=== PATIENT | male | born 1960 | race Caucasian/White ===

== ENCOUNTER 2019-09-14 06:23 | Outpatient (CLI) | payer OTHER ==
[~2019-09-14] VITALS: Ht 170.2 cm; Wt 59.1 kg
--- NOTE | ~2019-09-14 | HEMODYNAMI ---
PATIENT:DAVID WOLFE MEDICAL RECORD: [id number] : 64 LOCATION:[facility] ADMISSION DATE: 09/14/19 Generatedon:09/14/201912:49 Patient name: DAVID WOLFE Patient #: [id number] SSN: [id number] : 1960 Date of study: 09/14/2019 Page: Of Hemodynamic Procedure Report Patient Data Patient Demographics Procedure consent was obtained First Name: DAVID Gender: Male Last Name: AIDEN : 1960 Middle Initial: E Age: 58 year(s) Patient #: [id number] Race: SSN: [id number] Additional ID: [id number] Contact details [address]: [address] [place] [address] State: [place] City: [place] Zip code: [address] Past Medical History Allergies Allergen Reaction Date Comments Reported Other allergy 09/14/2019 codeine Admission Admission Data Admission Date: 09/14/2019 Admission Time: 6:23 Arrival Date: 09/14/2019 Arrival Time: 0:00 Admit Source: Emergency Insurance Payor: Private department health insurance [facility] #: [id number] Height (in.): 66.93 BSA: 1.68 (m2) Height (cm.): 170 BMI: 20.42 (kg/m2) Weight (lbs.): 130.07 Weight (kg.): 59 Lab Results Lab Result Date: 09/14/2019 Lab Result Time: 0:00 Biochemistry Name Units Result Min Max BUN mg/dl 9 --(*---)-- 7 18 Creatinine mg/dl 0.9 --(-*--)-- 0.6 1.3 eGFR ml/min 90 --(*---)-- 90 120 NONAFRICAN Troponin l ng/ml 0.017 --(-*--)-- 0 0.06 CBC Name Units Result Min Max Hematocrit % 43.4 --(*---)-- 42 54 Hemoglobin g/dl 15.1 --(-*--)-- 13.5 17.5 Procedure Procedure Types Cath Procedure Diagnostic Procedure [facility] w/Coronaries Sedation Charges Moderate Sedation up to 15 minutes PCI Procedure Coronary Stent Coronary Stent Initial x2 Hemochron ACT Test Procedure Description Procedure Date Procedure Date: 09/14/2019 Procedure Start Time: 12:24 Procedure End Time: 12:47 Procedure Staff Name Function Elan Centeno MD Performing Physician Lesa Mcclelland RT Monitor Toni Byrd RN Nurse Nancy Jackson RT Scrub Bal Cooper RT Monitor Indication Chest pain Procedure Data Cath Procedure Fluoroscopy Diagnostic fluoroscopy Total fluoroscopy Time: 4.9 time: 4.9 min min Diagnostic fluoroscopy Total fluoroscopy dose: 497 dose: 497 mGy mGy Contrast Material Contrast Material Type Amount (ml) Isovue 300 104 Entry Location Entry Primary Successful Side Size Upsize Upsize Entry Closure Abraham ccessful Closure Location (Fr) 1 (Fr) 2 (Fr) Remarks Device Remarks Radial Right 6 Fr Mechanical artery Short Compression Estimated blood loss: 10 ml Diagnostic catheters Device Type Used For End Catheter Placement DIAGNOSTIC [place] 110cm 5 Procedure Fr catheter ([id number]) Procedure Complications No complications Procedure Medications Medication Administration Route Dosage 0.9% NaCl I.V. 100 ml/hr Oxygen etCO2 Nasal cannula 2 l/min Heparin Flush Bag added to field 2 bags (1000units/500ml NS) Lidocaine 2% added to field 20 Radial Cocktail added to field 1 syringe (Verapamil 2mg/Nitro 400mcg/Heparin 1500units) Versed I.V. 1 mg Fentanyl I.V. 50 mcg Radial Cocktail I.A. 1 syringe (Verapamil 2mg/Nitro 400mcg/Heparin 1500units) Versed I.V. 1 mg Fentanyl I.V. 50 mcg Heparin Bolus I.V. 4000 units Integrilin (Bolus I.V. 5 ml 2mg/ml) Integrilin (Bolus wasted 5 ml 2mg/ml) Hemodynamics Rest BSA: 1.68 (m2) HGB: 15.1 (g/dl) O2 Consumption: Estimated: 205.83 (ml/min) O2 Co nsumption indexed: Estimated:122.52 (ml/min/m) Heart Rate: 81 (bpm) Snapshots Pre Cath Intra NCS Post Cath Vital Signs Time Heart Resp SPO2 etCO2 NIBP (mmHg) Rhythm Pain Sedation Rate (ipm) (%) (mmHg) Status Level (bpm) 12:15:21 86 14 99 0 137/83(111) NSR 0 (11) 10(A) , No pain 12:19:30 82 12 99 12.6 121/85(99) NSR 0 (11) 10(A) , No pain 12:23:34 82 14 97 29.6 131/85(102) NSR 0 (11) 10(A) , No pain 12:27:46 88 18 96 22.2 118/61(83) NSR 0 (11) 10(A) , No pain 12:31:52 91 19 95 19.2 121/67(99) NSR 0 (11) 10(A) , No pain 12:36:00 92 17 96 23 115/70(90) NSR 0 (11) 9(A) , No pain 12:40:05 87 19 96 7.4 123/69(98) NSR 0 (11) 9(A) , No pain 12:44:13 84 8 96 27.4 117/74(95) NSR 0 (11) 9(A) , No pain Medications Time Medication Route Dose Verified Delivered Reason Not es Effectiveness by by 12:19:09 0.9% NaCl I.V. 100 Toni Toni Per physician ml/hr Rochelle Byrd RN RN 12:20:14 Oxygen etCO2 2 l/min Toni Toni for low 02 sats Nasal Lorigan Lordannielle cannula RN RN 12:20:25 Heparin Flush added 2 bags Toni Toni used for Bag to Lorigan Lorigan procedure (1000units/500ml [facility] RN RN NS) 12:20:38 Lidocaine 2% added 20ml Toni Toni for local to vial Lorigan Lorigan anesthetic field RN RN 12:20:49 Radial Cocktail added 1 Toni Toni used for (Verapamil to syringe Lorigan Lorigan procedure 2mg/Nitro field RN RN 400mcg/Heparin 1500units) 12:21:48 Versed I.V. 1 mg Toni Toni for sedation Rochelle Byrd RN RN 12:21:56 Fentanyl I.V. 50 mcg Toni Toni for sedation Rochelle Byrd RN RN 12:25:33 Radial Cocktail I.A. 1 Toni Elan for (Verapamil syringe Rochelle Centeno MD vasodilation 2mg/Nitro RN 400mcg/Heparin 1500units) 12:25:42 Versed I.V. 1 mg Toni Toni for sedation Rochelle Byrd RN RN 12:25:49 Fentanyl I.V. 50 mcg Toni Toni for sedation Rochelle Byrd RN RN 12:30:31 Heparin Bolus I.V. 4000 Toni Toni for units Rochelle Byrd anticoagulation RN RN 12:31:20 Integrilin I.V. 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 11:50:36 Bal LUTZ(R) sent for patient. Start room use. 11:50:38 Time tracking: Regular hours (M-F 7:00 - 5:00) 11:50:47 Plan of Care:Hemodynamics will remain stable., Cardiac rhythm will remain stable., Comfort level will be maintained., Respiratory function will remain adequate., Patient/ family verbilizes understanding of procedure., Procedure tolerated without complication., Recovers from procedure without complications.. 11:55:06 Risk of Mortality: 0.7 11:55:11 Risk of blood transfusion: 3.7 11:55:16 Risk of FARZANEH: 7.2 11:55:54 ACC Patient presents with Stable Angina CCS Anginal Class 2--Slight limitation of ordinary activity. 11:55:59 ACCPatient has been prescribed/administered the following anti-anginal medication within the last 2 weeks: None 11:57:01 Lab Result : eGFR NONAFRICAN 90 ml/min 11:57:01 Lab Result : Hemoglobin 15.1 g/dl 11:57:01 Lab Result : Hematocrit 43.4 % 11:57:01 Lab Result : BUN 9 mg/dl 11:57:01 Lab Result : Creatinine 0.9 mg/dl 11:57:01 Lab Result : Troponin l 0.017 ng/ml 11:58:26 Patient allergic to Other allergycodeine 11:58:31 Arrival Date: 09/14/2019 12:00:00 AM 11:58:39 Admit Source: Emergency department 11:59:18 Insurance Payor : Private health insurance 11:59:23 Patient Height : 66.93 inches 11:59:29 Patient Weight : 130.07 lbs 12:07:36 Patient received from ED to CCL 1 Alert and oriented. Tansferred to table in Supine position. 12:07:41 Warm blankets applied, and cristobal hugger turned on for patient comfort. 12:07:42 Correct patient and procedure confirmed by team. 12:07:43 ECG and BP/O2 sat monitors applied to patient. 12:14:16 Vital chart was started 12:14:21 Baseline sample Acquired. 12:14:31 Rhythm: sinus rhythm 12:14:32 Full Disclosure recording started 12:14:33 - 12:14:44 H&P Date Dictated: 09/14/2019 ER History on chart., New H&P dictated by physician.. 12:15:05 Pre-procedure instructions explained to patient. 12:15:06 Pre-op teaching completed and patient verbalized understanding. 12:15:18 Family in waiting room. 12:15:21 Patient NPO since Midnight. 12:15:28 Is the patient allergic to Iodine/contrast media? No. 12:15:29 Was the patient premedicated? Yes 12:15:31 Is patient on blood thinner?Yes 12:15:36 ACC The patient was administered the following blood thiners within the last 24 hours: ACCAspirin, ACCPlavix 12:15:42 Patient diabetic? No. 12:15:44 ----Pre-sedation anethsthesia assessment.---- 12:15:48 Previous problem with sedation/anesthesia? No ? 12:15:51 Snore? Yes 12:15:54 Sleep apnea? No 12:15:57 Deviated septum? No 12:15:58 Opens mouth fully? Yes 12:16:00 Sticks out tongue? Yes 12:16:13 Airway obstruction? Yes emphysema 12:16:29 Dentures? Yes partial in tight upper 12:16:52 Pre procedure: right dorsailis pedis pulse 1+ Palpable, but thready & weak; easily obliterated 12:17:00 Modified Tyrone's test Ulnar < 7 seconds 12:17:06 Patient pain scale 0/10 ?. 12:17:23 IV patent on arrival in right forearm with 0.9% NaCl at [facility]. 12:17:33 Lab results completed and on chart. 12:17:41 Stress Test: no; N/A ? 12:17:47 Right Radial & Right Groin area was prepped with chlora-prep and draped in sterile fashion 12:17:49 Alarms reviewed by R. N. 12:17:50 Sharps counted by scrub and verified by R.N. 12:17:51 Physician arrived 12:17:52 --------ALL STOP TIME OUT------ 12:17:53 Final Timeout: patient, procedure, and site verified with staff and physician. All members of the team are in agreement. 12:17:55 Right Radial & Right Groin site verified by team. 12:18:02 Fire Safety Assessment: A--An alcohol-based skin anteseptic being used preoperatively., C--Open oxygen or nitrous oxide is being used., D--An ESU, laser, or fiber-optic light is being used. 12:18:10 Physical assessment completed. ASA score P 2 - A patient with mild systemic disease as per Elan Centeno MD. 12:18:15 1) 90+ Normal kidney functon but urine findings or structural abnormalities or genetic trait point to kidney disease. 12:18:21 Maximum allowable contrast dose (3.7 X eGFR X 0.75)250 ml. 12:18:29 Sedation plan: IV Moderate Sedation Medication:Versed, Fentanyl 12:19:09 0.9% NaCl 100 ml/hr I.V. was administered by Toni Byrd RN; Per physician; Verbal order read back and verified. 12:19:50 Use device set Radial Dx or PCI 12:19:52 ACIST Syringe (08018) opened to sterile field. 12:19:53 Medline Cath Pack ([id number]) opened to sterile field. 12:19:54 Bag Decanter (2001S) opened to sterile field. 12:19:54 ACIST Hand Control (01601) opened to sterile field. 12:19:55 ACIST Manifold (04846) opened to sterile field. 12:19:57 Tegaderm 4 x 4 (1626W) opened to sterile field. 12:19:59 MBrace Wrist Support ([id number]) opened to sterile field. 12:20:03 EMERALD Guide Wire (453-621) opened to sterile field. 12:20:04 SHEATH 6FR RAIN (9712903) opened to sterile field. 12:20:14 Oxygen 2 l/min etCO2 Nasal cannula was administered by Toni Byrd RN; for low 02 sats; Verbal order read back and verified. 12:20:25 Heparin Flush Bag (1000units/500ml NS) 2 bags added to field was administered by Toni Byrd RN; used for procedure; Verbal order read back and verified. 12:20:38 Lidocaine 2% 20ml vial added to field was administered by Toni Byrd RN; for local anesthetic; Verbal order read back and verified. 12:20:49 Radial Cocktail (Verapamil 2mg/Nitro 400mcg/Heparin 1500units) 1 syring e added to field was administered by Toni Byrd RN; used for procedure; Verbal order read back and verified. 12:21:48 Versed 1 mg I.V. was administered by Toni Byrd RN; for sedation; Verbal order read back and verified. 12:21:56 Fentanyl 50 mcg I.V. was administered by Toni Bryd RN; for sedation; Verbal order read back and verified. 12:23:47 Procedure started. 12:24:37 Zero performed for pressure channel P1 12:24:51 Local anesthetic to right radial artery with Lidocaine 2% by Elan Centeno MD.INITIAL ACCESS ONLY 12:25:33 Radial Cocktail (Verapamil 2mg/Nitro 400mcg/Heparin 1500units) 1 syring e I.A. was administered by Elan Centeno MD; for vasodilation; Verbal order read back and verified. 12:25:42 Versed 1 mg I.V. was administered by Toni Byrd RN; for sedation; Verbal order read back and verified. 12:25:46 A 6 Fr Short sheath was inserted into the Right Radial artery 12::49 Fentanyl 50 mcg I.V. was administered by Toni Byrd RN; for sedation; Verbal order read back and verified. 12::59 A DIAGNOSTIC [place] 110cm 5 Fr catheter (611187) was advanced over the wire and used for Procedure. 12::23 LV gram done using PEARCE 12::35 Injector settings: Ml/sec: 5, Volume: 15, 12::50 EF : 60 % 12:: LCA angiography performed. 12:: Injector settings: Ml/sec: 3, Volume: 6, 12::49 RCA angiography performed. 12::00 Injector settings: Ml/sec: 3, Volume: 6, 12::28 GUIDE 6FR XBLAD 3.5 catheter ([id number]) opened to sterile field. 12:28:31 INFLATOR Merit BasixCompak (ER4445) opened to sterile field. 12::42 CHOICE PT Extra Support 182cm wire ([id number]) opened to sterile field. 12::49 Catheter removed. 12:29:10 GUIDE 6FR AR 2.0 SH catheter ([id number]) opened to sterile field. 12:29:29 6 Fr ar2sh guide catheter was inserted over the wire 12:30:04 PT CHOICE wire advanced. 12:30:31 Heparin Bolus 4000 units I.V. was administered by Toni Byrd RN; for anticoagulation; Verbal order read back and verified. 12:30:32 Pre PCI Site: [place] pRCA has 90% stenosis. 12:30:37 ACC Pre-intervention ANNIE Flow is 3. 12:30:48 Wire advanced across lesion. 12:31:20 Integrilin (Bolus 2mg/ml) 5 ml I.V. was administered by Toni Byrd RN; for antiplatelet therapy; Verbal order read back and verified. 12:31:26 Integrilin (Bolus 2mg/ml) 5 ml wasted was administered by Toni Byrd RN; to sharp's; Verbal order read back and verified. 12:32:01 Place stent Inflation Number: 1 A JUSTICE RX 3.0 x 38 stent ([id number]) was prepped and advanced across the Prox RCA . The stent was deployed at 17 CAMILO for 0:00 (min:sec) . 12:32:38 Inflation number: 2 The stent balloon was then re-inflated across the Prox RCA to 17 CAMILO for 0:00 (min:sec) . 12:32:59 Inflation number: 3 The stent balloon was then re-inflated across the Prox RCA to 15 CAMILO for 0:00 (min:sec) . 12:33:45 Inflation number: 4 The stent balloon was then re-inflated across the Prox RCA to 15 CAMILO for 0:00 (min:sec) . 12:34:12 Stent catheter was removed intact over wire. 12:34:14 Wire removed. 12:34:18 Guide catheter removed. 12:34:37 Post PCI Site: [place] pRCA has 0% stenosis. 12:34:50 ACC Post-intervention ANNIE Flow is 3. 12:35:18 CHOICE PT Extra Support 182cm wire ([id number]) opened to sterile field. 12:35:37 6 Fr XBLAD3.5 guide catheter was inserted over the wire 12:35:44 CHOICE PT wire advanced. 12:36:19 Pre PCI Site: [place] mLAD has 90% stenosis. 12:36:26 ACC Pre-intervention ANNIE Flow is 3. 12:36:49 Wire advanced across lesion. 12:37:50 Place stent Inflation Number: 1 A JUSTICE RX 2.5 x 22 stent ([id number]) was prepped and advanced across the Mid LAD . The stent was deployed at 13 CAMILO for 0:00 (min:sec) . 12:38:27 Post PCI Site: [place] mLAD has 0% stenosis. 12:38:39 ACC Post-intervention ANNIE Flow is 3. 12:38:49 Stent catheter was removed intact over wire. 12:38:52 Wire removed. 12:38:53 Guide catheter removed. 12:39:03 ACT drawn and resulted at OUT OF RANGE seconds. (normal therapeutic range 180-240 seconds). 12:39:08 Procedure ended.(Physican Out) 12:39:35 ZEPHYR REGULAR TR BAND (896215) opened to sterile field. 12:39:47 Sheath removed intact; hemostasis achieved with Mechanical Compression to the Right Radial artery. 12:42:03 Contrast amount:Isovue 300 104ml. 12:42:13 Fluoroscopy time 04.90 minutes. 12:42:21 Fluoroscopy dose: 497 mGy 12:42:21 Flurop Dose total: 497 12:42:30 Dose Area Product 64210 mGy/cm. 12:42:35 Maximum allowable dose exceeded? No. 12:42:37 Sharps counted by scrub and verified by R.N. 12:43:11 [place] band inflated with 10cc of air. 12:43:13 Insertion/operative site no bleeding no hematoma. 12:43:33 Post right radial artery:stable 12:43:36 Post Procedure Pulses reassessed and unchanged 12:43:41 Post-procedure physical assessment completed. ASA score P 2 - A patient with mild systemic disease as per Elan Centeno MD. 12:43:49 Post procedure rhythm: unchanged. 12:43:54 Estimated blood loss: 10 ml 12:44:03 Post procedure instruction explained to patient.Patient verbalizes understanding. 12:44:07 Patient needs reinforcement of post procedure teaching. 12:45:21 Procedure type changed to Cath procedure, Diagnostic procedure, LHC, C w/Coronaries, Sedation Charges, Moderate Sedation up to 15 minutes, PCI procedure, Coronary Stent, Coronary Stent Initial x2, Hemochron ACT Test 12:45:25 Procedure and supply charges have been captured, reviewed, submitted an d are correct. 12:46:41 Procedure Complication : No complications 12:46:45 Vital chart was stopped 12:46:48 [facility] Findings: MVD- PCI performed (see procedure note) 12:46:52 Operative report dictated upon procedure completion. 12:46:53 See physician's report for complete and final results. 12:46:57 Report given to Pre/Post Procedure Room. 12:47:02 Patient transfered to Pre/Post Procedure Room with Stretcher. 12:47:07 Procedure ended. 12:47:07 Full Disclosure recording stopped 12:47:31 ACC-PCI Only Patient was given prescriptions, or instructed by Elan Centeno MD to start/continue the following medications upon discharge: Plavix 12:47:33 End room use (Document Last) Intervention Summary Intervention Notes Time ActionType Lesion and Equipment Used Action# Pressure Duration Attributes 12:32:01 Place stent Prox RCA JUSTICE RX 3.0 x 1 17 00:00 38 stent ([id number]) 12:32:38 Reinflate Prox RCA JUSTICE RX 3.0 x 2 17 00:00 stent 38 stent balloon ([id number]) 12:32:59 Reinflate Prox RCA JUSTICE RX 3.0 x 3 15 00:00 stent 38 stent balloon ([id number]) 12:33:45 Reinflate Prox RCA JUSTICE RX 3.0 x 4 15 00:00 stent 38 stent balloon ([id number]) 12:37:50 Place stent Mid LAD JUSTICE RX 2.5 x 1 13 00:00 22 stent ([id number]) Device Usage Item Name Manufacture Quantity Catalog Number Hospital Part Current M inimal Lot# / Charge Number Stock Stock Serial# Code ACIST Syringe Acist 1 79844 386200 257005 874327 2 0 (92944) Medical Systems Inc Medline Cath Medline 1 [id number] 828641 13369 656555 5 Pack ([id number]) Bag Decanter Microtek 1 2001S 363833 37281 177724 5 (2001S) Medical Inc. ACIST Hand Acist 1 49895 820601 554675 924089 5 Control Medical (62532) Systems Inc ACIST Manifold Acist 1 63251 792934 475663 967715 5 (67662) Medical Systems Inc Tegaderm 4 x 4 3M 1 1626W 066614 751917 669653 5 (1626W) MBrace Wrist Advanced 1 140-0250-00 366092 58411 940016 5 Support Vascular ([id number]) Dynamics EMERALD Guide Cardinal 1 502-455 341655 327957 911348 5 Wire (502-455) Health SHEATH 6FR Cardinal 1 8693665 352145 2047183 538803 5 RAIN (0588521) Health DIAGNOSTIC Terumo 1 31-2353 677583 809788 678739 5 [place] 110cm 5 Fr catheter (574129) GUIDE 6FR Cardinal 1 12706748 101916 430062 085169 1 0 XBLAD 3.5 Health catheter (03910519) INFLATOR Merit Merit 1 IT1730 695608 938732 167821 1 5 Mayi Zhaopin (FF8112) CHOICE PT [place] 2 [id number] 681687 649270 092127 5 Extra Support Scientific 182cm wire ([id number]) GUIDE 6FR AR Medtronic 1 [id number] 451952 37668 670927 1 2.0 SH catheter ([id number]) JUSTICE RX 3.0 x Medtronic 1 [id number] 405137 7114269 588246 5 [id number] 38 stent ([id number]) JUSTICE RX 2.5 x Medtronic 1 [id number] 707269 9075992 755763 5 [id number] 22 stent ([id number]) ZEPHYR REGULAR Cardinal 1 281634 732257 7660759 145115 5 [facility] 3D Systems (666458) Signature Audit [place] Stage Time Signature Unsigned Intra-Procedure 09/14/2019 Lesa 12:49:05 PM Krystin RT(R) (CV) Intra-Procedure 09/14/2019 Toni 12:49:30 PM Rochelle PARKER Intra-Procedure 09/14/2019 Elan Centeno 12:49:53 PM [facility] [address] [place] [address]
[2019-09-14 06:28] VITALS: BP 134/84
[2019-09-14 07:43] LABS: CALC OSMOLALITY 273 mosm/kg (275-300); CALCIUM 8.9 mg/dL (8.5-10.1); CARBON DIOXIDE 25.4 mmol/L (21.0-32.0); CHLORIDE - SERUM 103 mmol/L (98-107); CREATININE - SERUM 0.9 mg/dL (0.6-1.3); GLUCOSE 112 mg/dL (74-106); POTASSIUM - SERUM 3.8 mmol/L (3.5-5.1); SODIUM 137 mmol/L (136-145); UREA NITROGEN 9 mg/dL (7-18); eGFR NON AFRICAN AMERICAN > 90 mL/min (90-120)
[2019-09-14 07:54] LABS: BASOPHILS 0.3 % (0-2); EOSINOPHILS 2.4 % (0-7); HEMATOCRIT 43.4 % (42.0-54.0); HEMOGLOBIN 15.1 g/dL (13.5-17.5); IMMATURE GRANULOCYTES 0.3 % (0-5); LYMPHOCYTES 9.2 % (15-50); MCH 30.4 pg (26.0-34.0); MCHC 34.8 g/dL (31.0-37.0); MCV 87.5 fL (80.0-100.0); MEAN PLATELET VOLUME 9.4 fL (7.4-10.4); MONOCYTES 5.4 % (2-11); NEUTROPHILS 82.4 % (40-80); PLATELET COUNT 251 10x3/uL (130-400); RBC 4.96 10x6/uL (4.20-6.10); RDW 12.7 % (11.5-14.5)
[2019-09-14 07:56] LABS: ALBUMIN 3.4 g/dL (3.4-5.0); ALKALINE PHOSPHATASE 103 U/L (46-116); ALT (SGPT) 25 U/L (10-68); BILIRUBIN - TOTAL 0.31 mg/dL (0.2-1.3); CREATINE KINASE 73 UL (21-232); MAGNESIUM - SERUM 1.9 mg/dL (1.8-2.4)
[2019-09-14 07:57] LABS: TROPONIN-I < 0.017 ng/mL (0.000-0.060)
[2019-09-14 11:02] VITALS: Ht 170.2 cm; Wt 59.1 kg
[2019-09-14] MEDS ORDERED: BAYER CHEWABLE81 MG PO (12:49)
[2019-09-14] MEDS ORDERED: PLAVIX75 MG PO (12:49)
--- NOTE | 2019-09-14 12:55 | NUR ---
PT ARRIVED BY STRETCHER. PLACED ON MONITORS. ASSESSMENT COMPLETED. VSS. FAMILY AT BEDSIDE. DR. WILSON ROUNDED AND SPOKE WITH PT'S FAMILY PRIOR TO PT ARRIVAL.
--- NOTE | 2019-09-14 13:10 | NUR ---
RIGHT WRIST Z BAND IN PLACE. NO BLEEDING/HEMATOMA NOTED. CALL LIGHT WITHIN REACH. VSS. FAMILY AT BEDSIDE. PT RESTING COMFORTABLY.
[2019-09-14] MEDS ORDERED: PRAVACHOL40 MG PO (13:19)
--- NOTE | 2019-09-14 13:40 | NUR ---
RIGHT RADIAL Z BAND IN PLACE. NO BLEEDING/HEMATOMA NOTED. CALL LIGHT WITHIN REACH. FAMILY AT BEDSIDE. VSS. PT RESTING COMFORTABLY.
--- NOTE | 2019-09-14 14:10 | NUR ---
RIGHT WRIST Z BAND IN PLACE. NO BLEEDING/HEMATOMA NOTED. CALL LIGHT WITHIN REACH. FAMILY AT BEDSIDE.
--- NOTE | 2019-09-14 14:43 | NUR ---
PT RESTING COMFORTABLY. VSS. RIGHT RADIAL Z BAND IN PLACE. NO BLEEDING/HEMATOMA NOTED. CALL LIGHT WITHIN REACH. FAMILY AT BEDSIDE. PT DENIES NAUSEA/PAIN AT THIS TIME.
--- NOTE | 2019-09-14 15:15 | NUR ---
2cc OF AIR REMOVED FROM Z BAND. NO BLEEDING/HEMATOMA NOTED. CALL LIGHT WITHIN REACH. VSS. FAMILY AT BEDSIDE. PT SITTING UP EATING SANDWICH TRAY AND DRINK.
--- NOTE | 2019-09-14 15:29 | NUR ---
3cc OF AIR REMOVED FROM Z BAND. NO BLEEDING/HEMATOMA NOTED. CALL LIGHT WITHIN REACH. VSS AT THIS TIME. FAMILY AT BEDSIDE. NO NEEDS AT THIS TIME.
--- NOTE | 2019-09-14 15:41 | NUR ---
3cc OF AIR REMOVED FROM Z BAND. NO BLEEDING/HEMATOMA NOTED. CALL LIGHT WITHIN REACH AND FAMILY AT BEDSIDE. PT TOLERATING SANDWICH AND DRINK. DENIES NAUSE/PAIN AT THIS TIME.
--- NOTE | 2019-09-14 16:00 | NUR ---
3cc OF AIR REMOVED FROM Z BAND. NO BLEEDING/HEMATOMA NOTED. CALL LIGHT WITHIN REACH. PIV D/C'D WITH CATH TIP INTACT. TOLERATED WELL. RIGHT WRIST BRACE IN PLACE. PT INSTRUCTED TO GET UP AND DRESSED. NO ASSISTANCE NEEDED. CALL LIGHT WITHIN REACH.
--- NOTE | 2019-09-14 16:15 | NUR ---
PT DRESSED. Z BAND REMOVED AND DRESSING APPLIED. NO BLEEDING/HEMATOMA NOTED. RIGHT WRIST BRACE IN PLACE. PT AMBULATED TO RESTROOM. VOIDED WITHOUT DIFFICULTY.
--- NOTE | 2019-09-14 16:20 | NUR ---
DISCUSSED DISCHARGE INSTRUCTIONS WITH PT AND PT'S FAMILY. THEY VOICED UNDERSTANDING.
--- NOTE | 2019-09-14 16:30 | NUR ---
RIGHT WRIST DRESSING C/D/I. NO S/S OF HEMATOMA NOTED. PT TAKEN OUT TO VEHICLE BY WHEELCHAIR. NO S/S OF DISTRESS NOTED. ALL BELONGINGS AND PAPERWORK IN HAND.
--- NOTE | 2019-09-17 10:40 | OP ---
PATIENT NAME: DAVID WOLFE MEDICAL RECORD: [id number] :64 LOCATION:D.CAT ADMISSION DATE: SURGEON: DONNY WILSON MD DATE OF OPERATION: 09/14/2019 DATE OF SERVICE: 09/14/2019 PROCEDURES: 1. PTCA stent LAD. 2. PTCA stent RCA. 3. Left heart catheterization. 4. Selective coronary angiography. 5. Left ventriculogram. INDICATION: Unstable angina and coronary artery disease. PROCEDURE PERFORMED: After informed consent was obtained and after a detailed description of risks, benefits as well as alternative therapies, the patient elected to proceed with angiogram and angioplasty. The right radial area was prepped and draped in normal sterile fashion. Right radial artery was cannulated via modified Seldinger technique with placement of 6-Uzbek sheath. All catheters exchanged through this sheath. FINDINGS: Left ventriculogram was performed in standard 30-degree PEARCE view, reveals good cardiac wall motion, ejection fraction estimated at 60%. SELECTIVE CORONARY ANGIOGRAPHY: 1. Left main is with no significant angiographic disease. 2. Left anterior descending has an 85% to 90% stenosis in the mid vessel. 3. Left circumflex has mild irregularities, but no flow-limiting stenosis. 4. Right coronary artery has 90% to 95% stenosis proximally. PTCA STENT OF THE RCA: The stent used was a 3.0 x 38 mm [place]. Result was 0% residual stenosis. PTCA STENT OF THE LAD: The stent used was a 2.5 x 22 mm [place]. Result was 0% residual stenosis. OVERALL IMPRESSION: Successful percutaneous transluminal coronary angioplasty stent of the right coronary artery and left anterior descending, both going from 85% to 95% initial stenosis to 0% residual. TRANSINT:[id number] Voice Confirmation ID: [id number] DOCUMENT ID: [id number] DONNY WILSON MD at 1040 CC: [id number] DICTATION DATE: 09/14/19 1243 NAILER HAND: 09/14/19 1534 DEP CLI 09/14/[address] [address]
--- NOTE | 2019-09-17 10:40 | CN ---
PATIENT NAME:DAVID WOLFE MEDICAL RECORD: [id number] : 64 LOCATION:D.CAT ADMIT DATE: ACCOUNT: [id number] CONSULTING PHYSICIAN: DONNY WILSON MD REFERRING PHYSICIAN: JADE ROMO MD DATE OF CONSULTATION: 09/14/2019 CARDIOLOGY CONSULTATION DIAGNOSES: 1. Angina. 2. Coronary artery disease. 3. Previous percutaneous transluminal coronary angioplasty stent. HISTORY OF PRESENT ILLNESS: Mr. Wolfe initially presented with right-sided chest discomfort, it is clearly musculoskeletal in nature, noncardiac; however, he has been having left-sided chest pain compatible with angina as well. He has a history of cardiac stents, the last being in 2007. The chest pain has been present for 2 months. It is in an escalating fashion. The EKG is overall normal. Troponin is normal. He continues to have episodes of left as well as the right-sided chest pain. PHYSICAL EXAMINATION: CONSTITUTIONAL/GENERAL APPEARANCE: Well nourished, well developed, appears stated age. EYES: Lids and conjunctivae noninjected. No discharge. No pallor. ENT: Lips within normal limit. No cyanosis. No pallor. NECK: Carotid arteries, bilateral normal upstroke. No bruits. No thrills. No jugular venous pressure or distention. CERVICAL LYMPH NODES: Nontender. Nonenlarged. THYROID: Not enlarged. No nodules. CARDIOVASCULAR: Precordial exam, nondisplaced. No heaves or pericardial thrills. Rate and rhythm, regular. Heart sounds, normal S1, normal S2. No S3, no gallop, no rub. Systolic murmur, not heard. Diastolic murmur, not heard. RESPIRATORY: Respiratory effort, unlabored. Normal curvature. No thoracic deformity. No chest wall tenderness. Percussion, resonant. Auscultation, clear. No wheezes, no rales, no rhonchi. ABDOMEN: Soft, nondistended, nontender. No abdominal pain, no vomiting and normal appetite. MUSCULOSKELETAL: No joint tenderness, normal gait, normal tone. SKIN: Warm and dry. OVERALL IMPRESSION: Right-sided chest pain, noncardiac, musculoskeletal in nature, left-sided chest pain; however, it is more compatible with angina, it has been escalating. He has been short of breath as well. We will risk stratify with stress testing. TRANSINT:[id number] Voice Confirmation ID: [id number] DOCUMENT ID: [id number] CONSULT REPORT [id number] DAVID WOLFE, DONNY WATSON at 1040 CC: [id number] DICTATION DATE: 09/14/19 1104 PRESERVATIONIST: 09/14/19 1358 DEP CLI 09/14/19 [place] [id number]
--- NOTE | 2019-09-17 10:40 | ST ---
PATIENT:DAVID WOLFE MEDICAL RECORD: [id number] SEX: M LOCATION:D.CAT ORDER #: ADMISSION DATE: 09/14/19 AGE OF PATIENT: 58 REFERRING PHYSICIAN: INTERPRETING PHYSICIAN: DONNY WILSON MD DATE OF SERVICE: 09/14/2019 PROCEDURE: Stress test. INDICATION: Angina and coronary artery disease. The patient was exercised on standard Jah protocol for 9 minutes, terminated due to angina, abnormal ECG. He did develop anginal chest discomfort in stage III with [address] depression. OVERALL IMPRESSION: Positive for inducible ischemia at adequate cardiac workload. TRANSINT:[id number] Voice Confirmation ID: [id number] DOCUMENT ID: [id number] DONNY WILSON MD at 1040 CC: [id number] DICTATION DATE: 09/14/191136 DOG BATHER: 09/14/192101 DEP CLI 09/14/19 [place] [id number] [place] [address]
== END 2019-09-14 16:30 | disposition home or self-care (01) ==
LOC: D.ER 06:23 → D.CATH 06:23 → EDSTATUS 12:44 → D.CATH 16:30
PROVIDERS: ATTEND Family Medicine
DX: I25.110 Atherosclerotic heart disease of native coronary artery with unstable angina pectoris (principal)

== ENCOUNTER 2019-10-18 23:21 | Emergency (ER) | payer OTHER ==
[~2019-10-18] VITALS: Ht 170.2 cm; Wt 55.9 kg
[~2019-10-18 23:21] MED LIST: BAYER CHEWABLE81 MG PO; PLAVIX75 MG PO; PRAVACHOL40 MG PO
[2019-10-18 23:32] VITALS: Ht 170.2 cm; Wt 55.9 kg
[2019-10-18] MEDS ORDERED: LOPRESSOR25 MG PO (23:38)
[2019-10-18] MEDS ORDERED: ULTRAM50 MG PO (23:38)
[2019-10-19 00:18] LABS: BASOPHILS 0.2 % (0-2); EOSINOPHILS 4.2 % (0-7); HEMATOCRIT 41.8 % (42.0-54.0); HEMOGLOBIN 14.3 g/dL (13.5-17.5); IMMATURE GRANULOCYTES 0.1 % (0-5); LYMPHOCYTES 19.7 % (15-50); MCH 29.9 pg (26.0-34.0); MCHC 34.2 g/dL (31.0-37.0); MCV 87.3 fL (80.0-100.0); MONOCYTES 5.4 % (2-11); NEUTROPHILS 70.4 % (40-80); PLATELET COUNT 206 10x3/uL (130-400); RBC 4.79 10x6/uL (4.20-6.10); RDW 12.5 % (11.5-14.5)
[2019-10-19 00:24] LABS: CALC OSMOLALITY 281 mosm/kg (275-300); CALCIUM 8.5 mg/dL (8.5-10.1); CARBON DIOXIDE 27.5 mmol/L (21.0-32.0); CHLORIDE - SERUM 106 mmol/L (98-107); CREATININE - SERUM 0.9 mg/dL (0.6-1.3); GLUCOSE 127 mg/dL (74-106); SODIUM 141 mmol/L (136-145); UREA NITROGEN 11 mg/dL (7-18); eGFR NON AFRICAN AMERICAN > 90 mL/min (90-120)
[2019-10-19 00:32] LABS: ALBUMIN 3.4 g/dL (3.4-5.0); ALKALINE PHOSPHATASE 94 U/L (46-116); ALT (SGPT) 20 U/L (10-68); BILIRUBIN - TOTAL 0.22 mg/dL (0.2-1.3); CKMB 0.8 U/L (0.0-3.6); CREATINE KINASE 77 UL (21-232); PROTEIN - SERUM 7.6 g/dL (6.4-8.2)
[2019-10-19 00:34] LABS: TROPONIN-I < 0.017 ng/mL (0.000-0.060)
[2019-10-19 00:38] LABS: INR 0.95 (0.85-1.17); PROTIME 12.6 SECONDS (11.6-15.0)
[2019-10-19 02:10] VITALS: BP 102/63
== END 2019-10-19 02:10 | disposition home or self-care (01) ==
LOC: D.ER 23:21
PROVIDERS: Emergency Medicine
DX: R07.9 Chest pain, unspecified (principal); I25.10 Atherosclerotic heart disease of native coronary artery without angina pectoris; Z95.5 Presence of coronary angioplasty implant and graft; F17.210 Nicotine dependence, cigarettes, uncomplicated